=== PATIENT | male | born 1985 | race Caucasian/White ===

== ENCOUNTER 2021-01-06 13:37 | Emergency (ER) | payer OTHER ==
[~2021-01-06] VITALS: Ht 162.6 cm; Wt 84.8 kg
[2021-01-06 14:32] VITALS: BP 136/70
--- NOTE | 2021-01-06 14:37 | PHYS DOC ---
General Adult EDM: Chief Complaint: BACK PAIN OR INJURY HPI: HPI: 35-year-old male presents with thoracic back pain. Patient was out running on the sidewalk when he took a step and had sudden and severe shooting pain at about the level of T9. The pain radiated around his ribs to his upper abdomen. The patient was surprised at the level of pain. He was unable to stretch it out or continue running. He walked back to his house. He has tried heat and ice at home with no improvement. It feels like it hurts worse so he came in for evaluation. Patient has a history of low back fracture and pelvis fracture in 2013. The area of concern today is far away from those injuries. He denies any numbness, tingling, or altered sensation. He has noticed that his muscles are very tight throughout the back. Review of Systems: Review of Systems: Constitutional: Denies fever or chills Eyes: Denies change in visual acuity HENT: Denies nasal congestion or sore throat Respiratory: Denies cough or shortness of breath Cardiovascular: Denies chest pain or edema GI: Denies abdominal pain, nausea, vomiting, bloody stools or diarrhea : Denies dysuria Musculoskeletal: Thoracic back pain Integument: Denies rash Neurologic: Denies headache, focal weakness or sensory changes Endocrine: Denies polyuria or polydipsia Lymphatic: Denies swollen glands Psychiatric: Denies depression or anxiety Allergies: Allergies: Allergies Coded Allergies Type Severity Reaction Last Updated Verified No Known Drug Allergies 01/06/21 No Physical Exam: PE: Constitutional: Well developed, well nourished, no acute distress, non-toxic appearance. [] HENT: Normocephalic, atraumatic, bilateral external ears normal, oropharynx moist, no oral exudates, nose normal. [] Eyes: PERRLA, EOMI, conjunctiva normal, no discharge. [] Neck: Normal range of motion, no tenderness, supple, no stridor. [] Cardiovascular: Heart rate regular rhythm, no murmur [] Lungs & Thorax: Bilateral breath sounds clear to auscultation [] Abdomen: Bowel sounds normal, soft, no tenderness, no masses, no pulsatile masses. [] Skin: Warm, dry, no erythema, no rash. [] Back: Thoracic tenderness T8-T10, no step-offs, significant paraspinal muscle tightness and spasm relief. [] Extremities: No tenderness, no cyanosis, no clubbing, ROM intact, no edema. [] Neurologic: Alert and oriented X 3, normal motor function, normal sensory function, no focal deficits noted. [] Psychologic: Affect normal, judgement normal, mood normal. [] EKG: EKG: [] Radiology/Procedures: Radiology/Procedures: [] Impressions: EXAM: Thoracic spine, 3 views. HISTORY: Pain. COMPARISON: None. FINDINGS: 3 views of the thoracic spine are obtained. There is no listhesis. The vertebral bodies are normal in height and the disc spaces are preserved. IMPRESSION: No acute osseous finding. Electronically signed by: Cee Oconnell MD (01/06/2021 3:34 PM) [id number] DICTATED AND SIGNED BY: CEE OCONNELL MD DATE: 01/06/21 1534 CC: LISSETH PAT DO; PCP,UNKNOWN ~MTH0 0 Heart Score: C/O Chest Pain: N/A Risk Factors: Risk Factors: DM, Current or recent (<one month) smoker, HTN, HLP, family history of CAD, obesity. Risk Scores: Score 0 - 3: 2.5% MACE over next 6 weeks - Discharge Home Score 4 - 6: 20.3% MACE over next 6 weeks - Admit for Clinical Observation Score 7 - 10: 72.7% MACE over next 6 weeks - Early Invasive Strategies Course & Med Decision Making: Course & Med Decision Making Pertinent Labs and Imaging studies reviewed. (See chart for details) The patient's thoracic x-ray is negative for acute findings. He does have significant paraspinal spasm and some tenderness. I will place him on 4 days of prednisone 50 mg given the first dose in the ED. I will also prescribe F lexeril and a few [place] 5/325. This should improve with conservative care. If his pain is not improved in the next week, he will need to follow-up with his primary physician and consider further evaluation and/or physical therapy. He is stable for discharge at this time. [] Dragon Disclaimer: Dragon Disclaimer: This electronic medical record was generated, in whole or in part, using a voice recognition dictation system. Departure Departure: Impression: Primary Impression: Thoracic back sprain Disposition: HOME / SELF CARE / HOMELESS Condition: STABLE Referrals: PCP,UNKNOWN (PCP) Patient Instructions: Thoracic Strain, Egnk-me-Fxbm Scripts Prednisone (PREDNISONE) 50 Mg Tablet 1 TAB PO DAILY for back pain for 3 Days, #3 TAB Prov: LISSETH PAT DO 01/06/21 Hydrocodone/Acetaminophen (Hydrocodone-Acetamin 5-325 mg) 1 Each Tablet 1 EACH PO Q4-6HRS PRN for PAIN, #10 TAB Prov: LISSETH PAT DO 01/06/21 Cyclobenzaprine Hcl (CYCLOBENZAPRINE HCL) 10 Mg Tablet 1 TAB PO TID PRN for MUSCLE SPASMS, #30 TAB Prov: LISSETH PAT DO 01/06/21 LISSETH PAT DO Jan 06, 2021 14:37
--- NOTE | 2021-01-06 15:37 | RAD ---
EXAM: Thoracic spine, 3 views. HISTORY: Pain. COMPARISON: None. FINDINGS: 3 views of the thoracic spine are obtained. There is no listhesis. The vertebral bodies are normal in height and the disc spaces are preserved. IMPRESSION: No acute osseous finding. Electronically signed by: Cee Oconnell MD (01/06/2021 3:34 PM) [id number]
[2021-01-06] MEDS ORDERED: HYDROcodone/APAP 5/325MG 1 TAB TABLET PO ONE (15:45)
[2021-01-06] MEDS ORDERED: CYCLOBENZAPRINE 10 MG TABLET. PO ONE (15:45)
[2021-01-06] MEDS ORDERED: predniSONE 10 MG TABLET. PO ONE (15:45)
[2021-01-06] MEDS ORDERED: CYCL10TA19 PO (15:48)
[2021-01-06] MEDS ORDERED: PRED50TA PO (15:48)
[2021-01-06] MEDS ORDERED: HYDR-2759 PO (15:48)
== END 2021-01-06 15:57 | disposition home or self-care (01) ==
LOC: ER 13:37
DX: S23.3XXA Sprain of ligaments of thoracic spine, initial encounter (principal); X50.9XXA Other and unspecified overexertion or strenuous movements or postures, initial encounter; Y93.02 Activity, running; Y92.89 Other specified places as the place of occurrence of the external cause; Y99.8 Other external cause status
CPT/HCPCS: 72072; 99283